=== PATIENT | female | born 2000 | race Two or more races ===

== ENCOUNTER → 2020-09-24 | Emergency (ER) | payer BC ==
[~2020-09-24] VITALS: Ht 152.4 cm; Wt 59.0 kg
== END | disposition designated cancer center or children's hospital (05) ==
LOC: ER 02:26 → EMR PED 02:26 → ER 02:44
DX: S56.022A Laceration of flexor muscle, fascia and tendon of left thumb at forearm level, initial encounter (principal); U07.1 COVID-19; W26.8XXA Contact with other sharp object(s), not elsewhere classified, initial encounter; Y93.89 Activity, other specified; Y92.89 Other specified places as the place of occurrence of the external cause; Y99.8 Other external cause status